=== PATIENT | female | born 1970 | race Asian ===

== ENCOUNTER 2018-11-29 13:11 | Outpatient (CLI) | payer OTHER, SELFPAY ==
--- NOTE | 2018-11-29 13:46 | DI.MAMMO_ITS ---
SYMPTOMS/DIAGNOSIS: H/O BREAST CA, LEFT BREAST MASTECTOMY, SCREENING, Z12.31 MAMMOGRAMS: Mammograms were interpreted according to the usual protocol including computer analysis with CAD system, tomosynthesis and C view imaging. The patient is status post left mastectomy for CA. The right breast is radiodense, which lowers the sensitivity of the study. There is no dominant mass. There are no suspicious calcifications. A biopsy marker is identified in the medial subareolar portion of the breast. SUMMARY: No evidence of malignancy, category 1. Annual screening mammography is recommended. Breast density category C. MQSA ASSESSMENT OF FINDINGS: Negative. Category 1. Patient will receive a letter notifying them of these results. Bi-RADS category C. The breasts are heterogeneously dense, which may obscure small masses.
== END 2018-11-29 13:31 ==
PROVIDERS: PCP Family Medicine; Visit Provider Nurse Practitioner Adult Health
DX: Z12.31 Encounter for screening mammogram for malignant neoplasm of breast (principal); Z85.3 Personal history of malignant neoplasm of breast; Z90.12 Acquired absence of left breast and nipple
CPT/HCPCS: 77063; 77067

== ENCOUNTER 2019-07-20 02:28 | Outpatient (CLI) | payer OTHER, SELFPAY ==
[2019-07-21 18:00] LABS: Progesterone 0.3 ng/mL (See Table)
[2019-07-24 17:07] LABS: 25-Hydroxy D Total 16 ng/mL; 25-Hydroxy D2 <4.0 ng/mL; 25-Hydroxy D3 16 ng/mL
== END 2019-07-20 02:48 ==
PROVIDERS: PCP Nurse Practitioner Adult Health; Visit Provider Naturopath
DX: N95.1 Menopausal and female climacteric states (principal); E55.9 Vitamin D deficiency, unspecified
CPT/HCPCS: 36415; 82306; 84144

== ENCOUNTER 2019-08-14 03:19 | Outpatient (CLI) | payer OTHER, SELFPAY ==
[2019-08-14 07:26] LABS: Abs Immature Grans 0.01 k/cumm (0.0-0.09); Absolute Basophil Count 0.01 k/cumm (0.0-0.2); Absolute Eosinophil Count 0.09 k/cumm (0.0-0.7); Absolute Lymphocyte Count 0.86 k/cumm (1.2-3.4); Absolute Monocyte Count 0.44 k/cumm (0.11-0.7); Absolute Neutrophil Count 1.53 k/cumm (1.2-6.7); Basophils % 0.3; Eosinophils % 3.1; HCT 42.2 % (36.0-46.0); HGB 13.7 g/dL (12.0-15.5); Immature Grans % 0.3 %; Lymphocytes % 29.3; Mean Corp. HGB Concentration 32.5 g/dL (32.0-36.0); Mean Corpuscular Hemoglobin 30.3 pg (27.0-33.0); Mean Corpuscular Volume 93.4 fL (80-95); Mean Platelet Volume 8.3 fL (8.0-11.0); Platelet Count 249 x1000/uL (130-400); RBC 4.52 m/cumm (4.00-5.20); RBC Distribution Width 12.5 % (11.7-14.6); White Blood Cell Count 2.94 k/cumm (4.4-10.8)
[2019-08-14 08:52] LABS: ALT 26 U/L (14-59); AST 15 U/L (15-37); Albumin 3.6 g/dL (3.4-5.0); Alkaline Phosphatase 60 U/L (46-116); Anion Gap 10.5 mmol/L (3-11); BUN 10 mg/dL (7-18); Bilirubin, Total 0.2 mg/dL (0.2-1.0); CO2 27.5 mmol/L (21.0-32.0); CREATININE 0.61 mg/dL (0.55-1.02); Calcium 8.3 mg/dL (8.5-10.1); Chloride 104 mmol/L (98-107); Glucose 94 mg/dL (74-106); Potassium 3.5 mmol/L (3.5-5.1); Sodium 142 mmol/L (136-145); Total Protein 7.1 g/dL (6.4-8.2)
== END 2019-08-14 03:39 ==
PROVIDERS: PCP Nurse Practitioner Adult Health; Visit Provider Nurse Practitioner Adult Health
DX: R10.11 Right upper quadrant pain (principal)
CPT/HCPCS: 36415; 80053; 85025

== ENCOUNTER 2019-08-14 08:06 | Outpatient (REF) | payer OTHER, SELFPAY ==
[2019-08-15 12:09] LABS: Helicobacter pylori Ag, Feces Negative (Negative)
== END 2019-08-14 08:26 ==
LOC: LBN 08:06
PROVIDERS: PCP Nurse Practitioner Adult Health; Visit Provider Nurse Practitioner Adult Health
DX: R10.11 Right upper quadrant pain (principal)
CPT/HCPCS: 87338

== ENCOUNTER 2019-08-15 01:34 | Outpatient (CLI) | payer OTHER, SELFPAY ==
--- NOTE | 2019-08-15 | DI.US_ITS ---
EXAM: US ABDOMEN CLINICAL HISTORY: RUQ ABD PAIN, R10.11 TECHNIQUE: Ultrasound abdomen performed using standard protocol. COMPARISON: No exams were available for comparison FINDINGS: LIVER: Normal size and echogenicity. No focal liver lesions are seen.. GALLBLADDER: No evidence of cholelithiasis. No evidence of wall thickening. No pericholecystic fluid identified. KIDNEYS: Kidneys are symmetric in size. No evidence of renal calculi. No evidence of hydronephrosis. No renal mass or cyst identified. BILIARY SYSTEM: No intrahepatic or extrahepatic biliary ductal dilation. METZ'S SIGN: Negative. PANCREAS: Normal where visualized. SPLEEN: Not enlarged. ABDOMINAL AORTA AND IVC: Visualized portions normal caliber. ASCITES: None seen. Liver is normal in size and echogenicity. IMPRESSION: Normal sonographic appearance of the upper abdomen. DATA REPOSITORY:
== END 2019-08-15 01:54 ==
PROVIDERS: PCP Nurse Practitioner Adult Health; Visit Provider Nurse Practitioner Adult Health
DX: R10.11 Right upper quadrant pain (principal)
CPT/HCPCS: 76700

== ENCOUNTER 2019-09-05 07:04 | Outpatient (CLI) | payer OTHER, SELFPAY ==
[2019-09-05 07:53] LABS: Abs Immature Grans 0.01 k/cumm (0.0-0.09); Absolute Basophil Count 0.03 k/cumm (0.0-0.2); Absolute Eosinophil Count 0.15 k/cumm (0.0-0.7); Absolute Lymphocyte Count 1.76 k/cumm (1.2-3.4); Absolute Monocyte Count 0.27 k/cumm (0.11-0.7); Absolute Neutrophil Count 2.89 k/cumm (1.2-6.7); Basophils % 0.6; Eosinophils % 2.9; HCT 39.9 % (36.0-46.0); HGB 13.1 g/dL (12.0-15.5); Immature Grans % 0.2 %; Lymphocytes % 34.4; Mean Corp. HGB Concentration 32.8 g/dL (32.0-36.0); Mean Corpuscular Hemoglobin 30.2 pg (27.0-33.0); Mean Corpuscular Volume 91.9 fL (80-95); Mean Platelet Volume 9.5 fL (8.0-11.0); Monocytes % 5.3; Neutrophils % 56.6; Platelet Count 273 x1000/uL (130-400); RBC 4.34 m/cumm (4.00-5.20); RBC Distribution Width 11.8 % (11.7-14.6); White Blood Cell Count 5.11 k/cumm (4.4-10.8)
[2019-09-05 09:14] LABS: ALT 26 U/L (14-59); AST 16 U/L (15-37); Albumin 3.8 g/dL (3.4-5.0); Alkaline Phosphatase 73 U/L (46-116); Anion Gap 6.3 mmol/L (3-11); BUN 18 mg/dL (7-18); Bilirubin, Total 0.5 mg/dL (0.2-1.0); CO2 29.7 mmol/L (21.0-32.0); CREATININE 0.53 mg/dL (0.55-1.02); Calcium 8.4 mg/dL (8.5-10.1); Calculated LDL 146 mg/dL (<100); Chloride 103 mmol/L (98-107); Cholesterol 219 mg/dL (<200); Glucose 83 mg/dL (74-106); HDL Cholesterol 56 mg/dL (40-60); Potassium 3.9 mmol/L (3.5-5.1); Sodium 139 mmol/L (136-145); Total Protein 7.4 g/dL (6.4-8.2); Triglyceride 85 mg/dL (<150)
[2019-09-06 10:17] LABS: FSH 44.9 mIU/mL (See Note); LH 17.4 mIU/mL (See Note)
[2019-09-06 17:55] LABS: Lipoprotein (a) <6 mg/dL (<=30)
[2019-09-09 12:15] LABS: Estradiol, Mass Spectrometry 132 pg/mL; Estrone 94 pg/mL
[2019-09-10 07:17] LABS: 25-Hydroxy D Total 16 ng/mL; 25-Hydroxy D2 <4.0 ng/mL; 25-Hydroxy D3 16 ng/mL
== END 2019-09-05 07:24 ==
PROVIDERS: PCP Nurse Practitioner Adult Health; Visit Provider Naturopath
DX: E78.5 Hyperlipidemia, unspecified (principal); N95.1 Menopausal and female climacteric states; E55.9 Vitamin D deficiency, unspecified; Z85.3 Personal history of malignant neoplasm of breast
CPT/HCPCS: 36415; 80053; 80061; 82306; 83695; 82670; 82679; 83001; 83002; 85025

== ENCOUNTER 2020-03-30 00:50 | Outpatient (CLI) | payer OTHER, SELFPAY ==
--- NOTE | 2020-03-30 | DI.MAMMO_ITS ---
EXAM: MG MAMMO SCREENING 60 MIN DUR CLINICAL HISTORY: PERSONAL H/O BREAST CA,C50.919,SCREENING, Z12.31 TECHNIQUE: Mammograms were interpreted according to the usual protocol including computer analysis w [employer] CAD system, tomosynthesis and C-view imaging. COMPARISON: FINDINGS: The patient has had a prior left mastectomy. Right breast is of high density. No dominant mass or c lumped microcalcification seen. No change in appearance comparison with previous studies including J une 2019. IMPRESSION: No specific evidence of malignancy at this time. Routine screening examinations are suggested at yea rly intervals due to the history of breast carcinoma. BI-RADS Category 1 - Negative Breast Density - Category C - Heterogeneously dense
== END 2020-03-30 01:10 ==
PROVIDERS: PCP Nurse Practitioner Adult Health; Visit Provider Nurse Practitioner Adult Health
DX: Z12.31 Encounter for screening mammogram for malignant neoplasm of breast (principal); Z85.3 Personal history of malignant neoplasm of breast; Z90.12 Acquired absence of left breast and nipple
CPT/HCPCS: 77063; 77067

== ENCOUNTER 2020-12-26 11:17 | Outpatient (CLI) | payer OTHER, SELFPAY ==
--- NOTE | 2020-12-26 | DI.RAD_ITS ---
Exam(s) XR CERVICAL SPINE COMP 4-5V EXAM: XR CERVICAL SPINE COMP 4-5V CLINICAL HISTORY: CERVICAL RADICULOPATHY. TECHNIQUE: 2D digital imaging was performed. COMPARISON: No exams were available for comparison FINDINGS: BONES: No fracture or destructive lesion. Vertebral bodies are unremarkable. Minimal degenerative fidel nges C5-6. DISKS: Intervertebral disc spaces are maintained. ALIGNMENT: Mild reversal of the normal cervical lordosis in the mid cervical spine. The odontoid and atlantoaxial articulations are normal. SOFT TISSUE: Normal. The lung apices are clear. IMPRESSION: Mild reversal of the normal cervical lordosis. Minimal degenerative changes. DATA REPOSITORY: RADIATION DOSE DELIVERED:
--- NOTE | 2020-12-26 12:07 | DI.VRAD_ITS ---
PROCEDURE INFORMATION: Exam: XR Cervical Spine Exam date and time: 12/26/2020 11:31 AM Age: 50 years old Clinical indication: Radiculopathy; Cervical region TECHNIQUE: Imaging protocol: XR of the cervical spine. Views: 4 or 5 views. COMPARISON: No relevant prior studies available. FINDINGS: Bones/joints: Mild reversal of the normal cervical lordosis in the mid to upper cervical spine. No listhesis. No acute or suspicious osseous abnormalities. Disc spaces are well maintained. No significant neural foraminal narrowing. Mild left-sided uncovertebral spurring at C5-C6. Soft tissues: Unremarkable. IMPRESSION: Mild reversal of the normal cervical lordosis in the mid to upper cervical spine. Dictated and Authenticated by: Tania Ledezma MD. Ordering:TAISHA Payne MD
== END 2020-12-26 11:37 ==
LOC: LBN 11:20 → DI 15:20
PROVIDERS: PCP Nurse Practitioner Adult Health; Visit Provider Nurse Practitioner Adult Health
DX: M47.22 Other spondylosis with radiculopathy, cervical region (principal)
CPT/HCPCS: 72050

== ENCOUNTER 2020-12-30 13:57 | Outpatient (REF) | payer OTHER, SELFPAY ==
[2020-12-30 15:22] LABS: Anion Gap 11.4 mmol/L (3-11); BUN 14 mg/dL (7-18); CO2 26.6 mmol/L (21.0-32.0); CREATININE 0.6 mg/dL (0.55-1.02); Calculated LDL 156 mg/dL (<100); Chloride 105 mmol/L (98-107); Cholesterol 260 mg/dL (<200); Glucose 97 mg/dL (74-106); HDL Cholesterol 66 mg/dL (40-60); Sodium 143 mmol/L (136-145); Triglyceride 194 mg/dL (<150)
== END 2020-12-30 13:58 | disposition home or self-care (01) ==
LOC: NCHCN 13:57
PROVIDERS: PCP Nurse Practitioner Adult Health; Visit Provider Nurse Practitioner Family
DX: Z00.00 Encounter for general adult medical examination without abnormal findings (principal); M25.552 Pain in left hip; G47.00 Insomnia, unspecified; F41.9 Anxiety disorder, unspecified; R10.32 Left lower quadrant pain; Z71.89 Other specified counseling
CPT/HCPCS: 80048; 80061

== ENCOUNTER 2021-02-02 16:19 | Outpatient (REF) | payer OTHER, SELFPAY ==
--- NOTE | 2021-02-02 15:30 | PAPFT_PTH ---
PATIENT: Josseline Bruner LOC: [facility]#:[id number] AGE/SX: 50/F ROOM: RE02/02/[address]: Katie Burkett : 1970 BED: DIS: 02/02/2021 SPEC #: [id number] RECD: 02/03/21 13:10 STATUS: PAUL SAAVEDRA #: [id number] MOHIT: 02/02/21 15:[address]: Katie Burkett DEPT: [facility], [facility] Cytology RECD BY: Roxanne Gaona ENTERED: 02/03/21 13:10 SP TYPE: PAPFT OTHR DR: Mable Stout Tissues: 1 - CX/ENDOCX FOR PAP SMEARS Procedures: PAP THIN PREP/UVM Screening HPV DNA PROBE Comments: [id number]
== END 2021-02-02 16:20 | disposition home or self-care (01) ==
LOC: NCHCN 16:19
PROVIDERS: PCP Nurse Practitioner Adult Health; Visit Provider Nurse Practitioner Family
DX: Z00.00 Encounter for general adult medical examination without abnormal findings (principal); Z12.4 Encounter for screening for malignant neoplasm of cervix; Z11.51 Encounter for screening for human papillomavirus (HPV)
CPT/HCPCS: 88142; 87624

== ENCOUNTER 2021-02-02 17:34 | Outpatient (REF) | payer OTHER, SELFPAY ==
[2021-02-02 22:28] LABS: TSH (W/Ref FT4) 0.64 uIU/mL (0.36-3.74)
== END 2021-02-02 17:35 | disposition home or self-care (01) ==
LOC: NCHCN 17:34
PROVIDERS: PCP Nurse Practitioner Adult Health; Visit Provider Nurse Practitioner Family
DX: R20.2 Paresthesia of skin (principal); M62.838 Other muscle spasm
CPT/HCPCS: 84443

== ENCOUNTER 2021-04-12 01:57 | Outpatient (CLI) | payer OTHER, SELFPAY ==
--- NOTE | 2021-04-12 | DI.MAMMO_ITS ---
Exam(s) MG MAMMO SCREENING 60 MIN DUR EXAM: MG MAMMO SCREENING 60 MIN DUR CLINICAL HISTORY: SCREENING, PERSONAL H/O BREAST CA,Z85.3. TECHNIQUE: Unilateral right breast full field digital CC and MLO mammographic images were obtained w ith 3D tomosynthesis and utilizing computer aided detection (CAD). There has been prior left mastecto my. Also performed spot Mag views of the right breast microcalcification group. COMPARISON: Prior mammograms dating back to 2016, the most recent being March 2020. This patient underwent prior left breast mastectomy. Also underwent subsequent right breast biopsy. FINDINGS: The fibroglandular tissue pattern in the right breast is again noted be dense. No new obvious right breast masses. There is a microcalcification group sys located approximately 4.5 cm in from the nipp le on the CC view. This appears relatively stable when compared to 2019 but was not evident on prior to that. There are no new findings in the immediate vicinity of the biopsy marker clip located in the retroare olar region of the right breast. There is no significant architectural distortion nor skin thickening-retraction. IMPRESSION: Dense fibroglandular tissue. Microcalcification group in the right breast for which spot Mag views w ere obtained. I feel that these Mag view should be repeated in 6 months to ensure stability. BI-RADS Category 3 - 6 month - Probably Benign Finding: Recommend follow-up mammography in 6 months Breast Density - Category C - Heterogeneously dense Breast density Category C or D implies that the patient has dense breast tissue. Dense breast tissue can make it harder to find cancer on a mammogram. Dense breast tissue is also associated with an incr eased risk of breast cancer. This information about the result of the mammogram report was provided to the patient to raise their awareness. Use this report when you speak with the patient about their risks for breast cancer, which includes their family history. At that time, you may recommend additional screening tests (Ultrasoun d or MRI) as these tests may add significant information. A negative radiographic report should not delay biopsy if a dominant or clinically suspicious mass is present. Up to ten percent of cancers are not identified on mammography. A negative report may reinforce clinical impression. Adenosis and dense breasts may obscure an underlying neoplasm. False positive reports average 6 to 10%. Patient will receive a letter notifying them of these results.
== END 2021-04-12 02:17 ==
PROVIDERS: PCP Nurse Practitioner Family; Visit Provider Nurse Practitioner Family
DX: Z12.31 Encounter for screening mammogram for malignant neoplasm of breast (principal); Z85.3 Personal history of malignant neoplasm of breast; R92.8 Other abnormal and inconclusive findings on diagnostic imaging of breast; R92.0 Mammographic microcalcification found on diagnostic imaging of breast
CPT/HCPCS: 77063; 77067

== ENCOUNTER → 2022-06-23 01:41 | Outpatient (CLI) | payer OTHER, SELFPAY ==
--- NOTE | 2022-06-23 | DI.MAMMO_ITS ---
Exam(s) MG MAMMO SCREENING 60 MIN DUR EXAM: MG MAMMO SCREENING 60 MIN DUR CLINICAL HISTORY: PERSONAL H/O BREAST CA, Z85.3,SCREENING. TECHNIQUE: Bilateral full field digital CC and MLO mammographic images were obtained with 3D tomosyn thesis and utilizing computer aided detection (CAD). COMPARISON: Prior mammograms were reviewed. There has been prior left mastectomy right breast biopsy. FINDINGS: The fibroglandular tissue pattern in the right breast again noted be dense, this somewhat decreasing the sensitivity of the mammogram for finding hidden underlying lesions. There are no new findings in the immediate vicinity the biopsy marker clip in the right breast. On 3D imaging there is a subtle suggestion basic metric density measuring approximately 1.6 by 1 poin t 4 cm, located approximately 2.5 cm in from the nipple on the CC view. Spot compression view and ul trasound recommended. In addition, there is a subtle posteriorly located microcalcification group again noted on the CC vie w, approximately 4.5 cm in from the nipple. Repeat spot Mag view recommended. No new architectural distortion or skin thickening-traction IMPRESSION: Dense fibroglandular tissue. Asymmetric density-possible nodule as well as a separate group of micro calcifications again seen on the CC view. Spot Mag CC view of the microcalcifications is recommended and spot compression 3D cc view of the possible nodular density. Also recommend complete breast ultrasound. BI-RADS Category 0 - Assessment Incomplete: Need additional imaging evaluation Breast Density - Category D - Extremely dense Breast density Category C or D implies that the patient has dense breast tissue. Dense breast tissue can make it harder to find cancer on a mammogram. Dense breast tissue is also associated with an incr eased risk of breast cancer. This information about the result of the mammogram report was provided to the patient to raise their awareness. Use this report when you speak with the patient about their risks for breast cancer, which includes their family history. At that time, you may recommend additional screening tests (Ultrasoun d or MRI) as these tests may add significant information. A negative radiographic report should not delay biopsy if a dominant or clinically suspicious mass is present. Up to ten percent of cancers are not identified on mammography. A negative report may reinforce clinical impression. Adenosis and dense breasts may obscure an underlying neoplasm. False positive reports average 6 to 10%. Patient will receive a letter notifying them of these results.
== END ==
PROVIDERS: PCP Nurse Practitioner Family; Visit Provider Nurse Practitioner Family
DX: Z12.31 Encounter for screening mammogram for malignant neoplasm of breast (principal); R92.8 Other abnormal and inconclusive findings on diagnostic imaging of breast
CPT/HCPCS: 77063; 77067

== ENCOUNTER 2022-06-29 03:26 | Outpatient (CLI) | payer OTHER, SELFPAY ==
--- NOTE | 2022-06-29 10:20 | DI.MAMMO_ITS ---
Exam(s) MG MAMMO SCREEN CALL BACK UNI US BREAST RT COMPLETE EXAM: MG MAMMO SCREEN CALL BACK UNI CLINICAL HISTORY: F/U MAMMO, MICROCALCIFICATION GROUP RT BREAST, R92.8, DENSITY. TECHNIQUE: Craniocaudal and mediolateral oblique spot compression magnification digital Mammography views of the right breast followed by Tomosynthesis and right breast ultrasound. COMPARISON: MG MG MAMMOGRAPHY SING RIGHT from 10/24/2017 MG MG mammo screening 60 min dur from 11/29/2018 MG MG MAMMO SCREENING 60 MIN DUR from 03/30/2020 MG MG MAMMO SCREENING 60 MIN DUR from 04/12/2021 MG MG MAMMO SCREENING 60 MIN DUR from 06/23/2022 US US BREAST RT COMPLETE from 06/29/2022 FINDINGS: Mammography/Tomosynthesis: Patient is status post left mastectomy. Masses/Architectural Distortion: None seen. Microcalcifictions: Faint cluster of calcifications in the upper-outer quadrant appear stable compare d with prior exams. No suspicious pleomorphic-type are seen. Skin Thickening/Nipple Retraction: None. Right breast US: Echotexture: Normal appearance of the glandular tissue. Shadowing: No suspicious foci. Biopsy marker clip seen 8 o'clock position 4 cm from the nipple. Cyst: 5 millimeter simple cyst 8 o'clock position 2 cm from the nipple. Solid lesions: None seen. Ductal dilation: None. IMPRESSION: 1. No evidence of malignancy is noted. 2. Unless there is more urgent need, follow-up screening mammography is recommended, as per [place] [employer] guidelines. 3. The findings were discussed with the patient on the date of the examination. BI-RADS Category 2 - Benign Findings Breast Density - Category D - Extremely dense A mammogram that demonstrates density of C or D indicates the patient's breast tissue is dense. Dense breast tissue is very common and is not abnormal, but dense breast tissue can make it harder to find cancer on a mammogram. Also, dense breast tissue may increase their breast cancer risk. This informa tion about the result of the mammogram report was provided to the patient to raise their awareness. U se this report when you speak with the patient about their risks for breast cancer, which includes th eir family history. At that time, you may recommend for more screening tests (Ultrasound or MRI) as t hey might be useful based on their risk. A negative radiographic report should not delay biopsy if a dominant or clinically suspicious mass is present. Up to ten percent of cancers are not identified on mammography. A negative report may reinforce clinical impression. Adenosis and dense breasts may obscure an underlying neoplasm. False positive reports average 6 to 10%. Patient will receive a letter notifying them of these results.
== END 2022-06-29 03:46 ==
LOC: DI 03:26
PROVIDERS: PCP Nurse Practitioner Family; Visit Provider Nurse Practitioner Family
DX: Z12.31 Encounter for screening mammogram for malignant neoplasm of breast (principal); R92.8 Other abnormal and inconclusive findings on diagnostic imaging of breast; Z85.3 Personal history of malignant neoplasm of breast; Z90.12 Acquired absence of left breast and nipple; N60.01 Solitary cyst of right breast
CPT/HCPCS: 76642; 77063; 77067

== ENCOUNTER 2022-09-09 13:34 | Outpatient (REF) | payer OTHER, SELFPAY ==
--- NOTE | 2022-09-09 13:30 | SKI_PTH ---
PATIENT: Josseline Bruner LOC: [facility] U#:[id number] AGE/SX: 51/F ROOM: RE09/09/[address]: Wilma Iraheta : 1970 BED: DIS: 09/09/2022 SPEC #: [id number] RECD: 09/09/22 14:11 STATUS: PAUL REDoris #: [id number] MOHIT: 09/09/22 13:[address]: Wilma Iraheta DEPT: Surgical Specimen RECD BY: Roxanne Gaona ENTERED: 09/09/22 14:11 SP TYPE: MAYKEL ROWLAND DR: Katie Burkett Tissues: 1 - SKIN BIOPSY(SHAVE/PUNCH) Procedures: GROSS AND MICRO LEVEL 3 Comments: [id number]
== END 2022-09-09 13:35 | disposition home or self-care (01) ==
LOC: LBN 13:34
PROVIDERS: PCP Nurse Practitioner Family; Visit Provider Surgery
DX: D17.1 Benign lipomatous neoplasm of skin and subcutaneous tissue of trunk
CPT/HCPCS: 88304; 88305

== ENCOUNTER 2023-01-10 16:11 | Outpatient (CLI) | payer OTHER, SELFPAY ==
[2023-01-10 16:10] LABS: ESR 38 mm/hr (0-30)
[2023-01-10 17:11] LABS: Hemoglobin A1C 5.6 % (<5.7)
[2023-01-10 17:13] LABS: TSH (W/Ref FT4) 0.62 uIU/mL (0.36-3.74); Vitamin B12 635 pg/mL (193-986)
[2023-01-12 14:48] LABS: Albumin g/dL 4.8 g/dL (3.6-5.2); Total Protein 8.2 g/dL (6.3-8.2)
== END 2023-01-10 16:12 | disposition home or self-care (01) ==
LOC: LBO 16:12
PROVIDERS: PCP Nurse Practitioner Family; Visit Provider Psychiatry & Neurology Neurology
DX: G62.9 Polyneuropathy, unspecified (principal); R73.9 Hyperglycemia, unspecified
CPT/HCPCS: 36415; 85652; 82607; 83036; 84165; 84443

== ENCOUNTER 2025-03-21 18:06 | Outpatient (REF) | payer OTHER, SELFPAY ==
[2025-03-21 19:36] LABS: Hemoglobin A1C 5.7 % (<5.7)
[2025-03-21 20:06] LABS: ALT 27 U/L (14-59); AST 15 U/L (15-37); Albumin 4.1 g/dL (3.4-5.0); Alkaline Phosphatase 109 U/L (46-116); Anion Gap 11.1 mmol/L (3-11); BUN 12 mg/dL (7-18); Bilirubin, Total 0.2 mg/dL (0.2-1.0); CO2 27.9 mmol/L (21.0-32.0); Calcium 9.0 mg/dL (8.5-10.1); Calculated LDL 158 mg/dL (<100); Chloride 102 mmol/L (98-107); Cholesterol 265 mg/dL (<200); Estimated GFR 111.39 (mL/min/1.73m2); Glucose 85 mg/dL (74-106); HDL Cholesterol 46 mg/dL (>or=50); Potassium 3.8 mmol/L (3.5-5.1); Sodium 141 mmol/L (136-145); TSH (W/Ref FT4) 0.64 uIU/mL (0.36-3.74); Total Protein 8.1 g/dL (6.4-8.2); Triglyceride 309 mg/dL (<150); Vitamin D 25 Total 19 ng/mL (30-100)
[2025-03-24 10:24] LABS: HIV-1/2 Ag & Ab Screen Negative (Negative)
[2025-03-24 10:47] LABS: Hepatitis C Ab w Rflx HCV PCR Negative (Negative)
== END 2025-03-21 18:07 | disposition home or self-care (01) ==
LOC: NCHCN 18:06
PROVIDERS: Visit Provider Nurse Practitioner Family
DX: Z00.00 Encounter for general adult medical examination without abnormal findings (principal); R00.2 Palpitations; H02.61 Xanthelasma of right upper eyelid
CPT/HCPCS: 80053; 80061; 82306; 86803; 87389; 83036; 84443